=== PATIENT | male | born 1990 | race Caucasian/White ===

== ENCOUNTER 2022-04-26 16:55 | Observation (INO) ==
[2022-04-26 18:58] LABS: Basophils # (auto) 0.07 K/uL (0-0.2); Basophils % (auto) 0.7 %; Eosinophils # (auto) 0.09 K/uL (0-0.50); Eosinophils % (auto) 0.9 %; Hematocrit (blood only) 40.2 % (40.1-51.0); Hemoglobin 14.6 g/dl (14.0-18.0); Immature Granulocytes # (auto) 0.05 K/uL (0.00-0.02); Immature Granulocytes % (auto) 0.5 %; Lymphocytes # (auto) 2.93 K/uL (1.2-3.4); Lymphocytes % (auto) 28.1 %; Mean Corpuscular Hemoglobin 30.7 pg (25.0-34.0); Mean Corpuscular Hgb Conc 36.3 g/dL (32.0-36.0); Mean Corpuscular Volume 84.6 fL (80.0-100.0); Mean Platelet Volume 9.1 fL (9.4-12.4); Monocytes # (auto) 0.66 K/uL (0.24-0.82); Monocytes % (auto) 6.3 %; Neutrophils # (auto) 6.61 K/uL (1.4-6.5); Neutrophils % (auto) 63.5 %; Platelet Count 307 K/uL (130-400); RDW Coefficient of Variation 12.2 % (11.5-14.5); RDW Standard Deviation 37.1 fL (36.4-46.3); Red Blood Count 4.75 M/uL (4.63-6.08); White Blood Count 10.41 K/ul (4.8-10.8)
[2022-04-26 19:28] LABS: Albumin Globulin Ratio 1.3 (0.9-2); Albumin Level 4.6 gm/dl (3.4-5.0); BUN Creatinine Ratio 13.3 (10-20); Bilirubin,Total 0.5 mg/dl (0.2-1.0); Calcium 9.8 mg/dl (8.5-10.1); Est GFR (African American) 131.4 ml/min; Est GFR (Non-African American) 113.4 ml/min; Globulin 3.6 gm/dl (2.5-4.0); Total Protein 8.2 gm/dl (6.0-8.3)
--- NOTE | 2022-04-26 22:04 | Emergency Department Note ---
History of Present Illness General Chief complaint: Rectal Pain Stated complaint: ABSCESS, TOOK ANTI-BIOTICS NO BETTER Time Seen by Provider: 04/26/22 21:25 History of Present Illness Maximum Pain Intensity: 3 This 31 yo presents to the ER complaining of rectal discomfort Location: Rectal Quality: Discomfort Severity: Moderate Duration: Past week Timing: Started week ago Context: Patient was concerned and came in Modifying factors: better with Augmentin; worse with palpation Patient states he went to urgent care and was started on Augmentin. He has a history of recurrent perirectal abscesses. He is from [place]. He is here visiting. Patient states overall his rectal area is feeling better. Patient denies fevers, vomiting, abdominal pain, or any other medical complaints. Home Medications Medication Instructions Recorded Confirmed Type Multivitamin 1 tab PO DAILY ##0 10/21/14 History Allergies Allergy/AdvReac Type Severity Reaction Status Date / Time No Known Allergies Allergy Unverified 10/21/14 02:38 Past Med/Surg History Medical History HTN (hypertension) Surgical History No pertinent past surgical history Social History Smoking Status: Never smoker Feels Safe at Home: Yes Review of Systems A total of 10 systems reviewed and were otherwise negative Physical Exam Vital Signs Vital Signs - 24 hr 04/26/22 17:07 04/26/22 22:00 Temperature 36.9 C Temperature Source Temporal Artery Scan Pulse Rate 98 H Pulse Rate [Finger] 88 Respiratory Rate 18 16 Blood Pressure 150/92 H Blood Pressure [Left Arm] 143/96 H Blood Pressure Mean 111 Blood Pressure Mean [Left Arm] 111 Pulse Oximetry 98 97 Oxygen Delivery Method Room Air Room Air Sepsis Recent Fever Within 48 Hours No Sepsis New/Unexplained Change in Mental Status No Sepsis Action Taken by Nursing No Action Required VITALS: Vitals are noted on the nurse's note and reviewed by myself. Vital signs stable. GENERAL: Pleasant gentleman ambulating without difficulty, in no acute distress, nondiaphoretic, well-developed well-nourished. SKIN: The skin was without rashes, erythema, edema, or bruising. There is no tenting of the skin. Capillary reflex less than 2 seconds. HEAD: Normocephalic atraumatic. EARS: External auditory canals clear, EYES: Pupils equal round and reactive to light and accommodation. Conjunctivae without injection, sclerae without icterus. Extraocular movements intact. NOSE: Patent, turbinates without inflammation or discharge. MOUTH: Mucous membranes moist. Pharynx without erythema or exudate. Uvula midline. Airway patent. Tongue does not deviate. NECK: Supple without nuchal rigidity. No lymphadenopathy. No thyromegaly. Cervical spine is nontender. No JVD. HEART: Regular rate and rhythm LUNGS: Clear to auscultation bilaterally without wheezes, rales or rhonchi. No retractions or accessory muscle use. ABDOMEN: Positive bowel sounds x 4. Normal tympanic percussion. Soft, nontender, without masses or organomegaly. Rodriguez sign negative. No guarding or rebound tenderness. No CVA tenderness Rectal exam: No obvious fissure or tear, rectal area with minimal induration at 9:00, no active drainage. MUSCULOSKELETAL: No muscle atrophy, erythema, or edema noted. NEURO: Patient was alert and oriented to person place and time. Normal sensatio n to light and sharp touch. No focal neurological deficits. Course Administered Medications Piperacillin Sod/Tazobactam Sod (Zosyn) 4.5 gm in 120 mls @ 240 mls/hr IV NOW ONE Stop: 04/26/22 23:40 Last Admin: 04/26/22 23:18 Dose: 240 mls/hr Documented By: TJG Discontinued Medications Ioversol (Optiray 350 100ml) 78 ml IV ONCE ONE Stop: 04/26/22 22:08 Last Admin: 04/26/22 22:07 Dose: 78 ml Documented By: [facility] Medical Decision Making Medical Records Attestation: I reviewed the patient's medical records. Home Medications Current Medication List: was personally reviewed by me Laboratory Data Attestation: I reviewed the patient's lab results. Result diagrams: 04/26/22 18:09 04/26/22 18:09 Lab Results 04/26/22 04/26/22 Range/Units 18:09 18:09 WBC 10.41 (4.8-10.8) K/ul RBC 4.75 (4.63-6.08) M/uL Hgb 14.6 (14.0-18.0) g/dl Hct 40.2 (40.1-51.0) % MCV 84.6 (80.0-100.0) fL MCH 30.7 (25.0-34.0) pg MCHC 36.3 H (32.0-36.0) g/dL RDW Std Deviation 37.1 (36.4-46.3) fL RDW Coeff of Yosvany 12.2 (11.5-14.5) % Plt Count 307 (130-400) K/uL MPV 9.1 L (9.4-12.4) fL Immature Gran % (Auto) 0.5 % Neut % (Auto) 63.5 % Lymph % (Auto) 28.1 % [place] % (Auto) 6.3 % Eos % (Auto) 0.9 % Baso % (Auto) 0.7 % Neut # (Auto) 6.61 H (1.4-6.5) K/uL Lymph # (Auto) 2.93 (1.2-3.4) K/uL [place] # (Auto) 0.66 (0.24-0.82) K/uL Eos # (Auto) 0.09 (0-0.50) K/uL Baso # (Auto) 0.07 (0-0.2) K/uL Immature Gran # (Auto) 0.05 H (0.00-0.02) K/uL Sodium 140 (136-145) mmol/L Potassium 3.0 L (3.5-5.1) mmol/L Chloride 102 (98-107) mmol/L Carbon Dioxide 29 (21-32) mmol/L Anion Gap 9 (3-11) BUN 12 (6-23) mg/dl Creatinine 0.90 (0.6-1.4) mg/dl Est Cr Clr Drug Dosing 140.0 ml/min Est GFR ( Amer) 131.4 ml/min Est GFR (Non-Af Amer) 113.4 ml/min BUN/Creatinine Ratio 13.3 (10-20) Glucose 81 (70-99(Fasting)) mg/dl Calcium 9.8 (8.5-10.1) mg/dl Total Bilirubin 0.5 (0.2-1.0) mg/dl AST 32 (13-39) U/L ALT 46 (7-52) U/L Alkaline Phosphatase 71 (34-104) U/L Total Protein 8.2 (6.0-8.3) gm/dl Albumin 4.6 (3.4-5.0) gm/dl Globulin 3.6 (2.5-4.0) gm/dl Albumin/Globulin Ratio 1.3 (0.9-2) Lipase 21 (11-82) U/L Imaging Data Attestation: I personally reviewed and interpreted this imaging study as follows: MDM Narrative Prior records reviewed and summarized as above. Triage Nursing notes reviewed. Additional history obtained from nursing. The patient's history was concerning for swelling and redness of the skin. Differential diagnosis: Etiologies such as cellulitis, abscess, MRSA infection, DVT, necrotizing fasciitis, dermatitis, drug eruption, as well as others were entertained.. Physical examination: As above ER treatment provided: Augmentin On reassessment the patient felt better. Diagnostics interpreted by me: The labs revealed no worrisome leukocytosis Imaging studies: Preliminary Findings Only See Final Report For Complete Findings CT PELVIS: There is a smooth oval 3.1 x 1.7 x 3.3 cm right perirectal abscess located mainly inferior to the level of the anal sphincter. This does not extend up into the perirectal fat planes. The appendix is normal. Visible bowel loops are unremarkable. The urinary bladder is empty but otherwise unremarkable. Skeletal structures appear within normal limits. Radiologist: Yuval Nicole MD Consultation: I spoke with surgery, Dr. Clifton and he will admit the patient take the patient to the OR for I&D. This appears to be Perirectal abscess. Surgery will admit and take the patient to the OR. Patient was written for antibiotics.patient is agreeable to treatment plan of admission. By the evaluation outlined above emergent etiologies such as necrotizing fasciitis, DVT, as well as others were deemed relatively unlikely. The pt informed about the findings as listed above. All questions were answered and pleased with the treatment. The chart was completed utilizing [employer] voice recognition software. Grammatical errors, random word insertions, pronoun errors, and incomplete sentences are an occassional consequence of this system due to software limitations, ambient noise, and hardware issues. Any formal questions or concerns about the content, text, or information contained within the body of this dictation should be directly addressed to the physician assistant inventory manager for clarification. Impression & Plan Abscess, perirectal Discharge Plan Visit Data Chief Complaint: Rectal Pain Stated Complaint: ABSCESS, TOOK ANTI-BIOTICS NO BETTER ED Provider: Rakesh Arias ED Midlevel Provider: Gema Nelson Discharge Problem: Abscess, perirectal Patient Disposition: Being Evaluated by Surgeon Condition: Good Forms Stand Alone Forms: Linkpass Prescriptions Prescriptions: No Action Multivitamin tablet 1 tab PO DAILY Qty: 0 Referrals Referrals: PCP,NO [Primary Care Provider] -
[2022-04-26] MEDS ORDERED: OPTIRAY 350 100ml IV ONE (22:07)
[2022-04-26] MEDS ORDERED: PIPERACILLIN/TAZOBACTAM 4.5 GM/120 ML BAG IV ONE (23:11)
--- NOTE | 2022-04-26 23:31 | History & Physical Report ---
Date of Service April 26, 2022 Assessment & Plan (1) Abscess, perirectal: Plan 31-year-old gentleman with recurrent perirectal abscess in the [address] scan demonstrates 3.1 x 3.4 cm abscess. He has been on 7 days of Augmentin. I discussed with him the need for incision and drainage of the abscess. He will be admitted to the hospital and COVID tested. We will keep him n.p.o. He will most likely undergo I&D of the perirectal abscess in the operating room tomorrow by the general surgery team on-call. History of Present Illness Primary Care Provider: NO PCP 31-year-old gentleman with a history of recurrent perirectal abscess presents with a 10-day history of pain in his rectal area. He was seen at a convenient care location was placed on Augmentin. He states that he has been feeling better. He did have fevers but they have gone away. He is having normal bowel movements. He is able to eat. He is driving back to [place] in the next few days, and decided to get checked out with a CT scan. The CT scan demonstrates a 3.1 cm perirectal abscess. He continues to have some tenderness with palpation of the area. He denies any current fevers or chills. Allergies Allergy/AdvReac Type Severity Reaction Status Date / Time No Known Allergies Allergy Unverified 10/21/14 02:38 Home Medications Medication Instructions Recorded Confirmed Type Multivitamin 1 tab PO DAILY ##0 10/21/14 History Past Med/Surg History Medical History HTN (hypertension) Surgical History No pertinent past surgical history Social History Smoking Status: Never smoker Feels Safe at Home: Yes Review of Systems Review of Systems: All systems reviewed & are unremarkable except as noted in HPI & below Physical Exam Constitutional: WD/WN, vitals as above Eyes: PERRL, conjunctivae normal, anicteric sclerae Neck: trachea midline, no thyromegaly Respiratory: normal respiratory effort, lungs clear to auscultation Cardiovascular: RRR, no murmur, no edema Gastrointestinal (Abdomen): Inspection/Auscultation: abdomen normal to inspection Percussion/Palpation: abdomen soft; abdomen nontender Rectal: 9:00 location with slight erythema and tenderness to palpation; no induration or fluctuance Skin: no rashes, warm and dry Psychiatric: A+Ox3, euthymic affect Results & Data Results & Data ([facility]) Vital Signs (Past 12 Hours) Vital Signs Temp Pulse Pulse Resp BP BP Pulse Ox 04/26/22 23:27 101 H 16 174/100 H 100 04/26/22 22:00 88 16 143/96 H 97 04/26/22 17:07 36.9 C 98 H 18 150/92 H 98 O2 Del Method 04/26/22 23:27 Room Air 04/26/22 22:00 Room Air 04/26/22 17:07 Room Air Laboratory Results 04/26/22 04/26/22 04/26/22 Range/Units 22:45 18:09 18:09 WBC 10.41 (4.8-10.8) K/ul RBC 4.75 (4.63-6.08) M/uL Hgb 14.6 (14.0-18.0) g/dl Hct 40.2 (40.1-51.0) % MCV 84.6 (80.0-100.0) fL MCH 30.7 (25.0-34.0) pg MCHC 36.3 H (32.0-36.0) g/dL RDW Std Deviation 37.1 (36.4-46.3) fL RDW Coeff of Yosvany 12.2 (11.5-14.5) % Plt Count 307 (130-400) K/uL MPV 9.1 L (9.4-12.4) fL Immature Gran % (Auto) 0.5 % Neut % (Auto) 63.5 % Lymph % (Auto) 28.1 % [place] % (Auto) 6.3 % Eos % (Auto) 0.9 % Baso % (Auto) 0.7 % Neut # (Auto) 6.61 H (1.4-6.5) K/uL Lymph # (Auto) 2.93 (1.2-3.4) K/uL [place] # (Auto) 0.66 (0.24-0.82) K/uL Eos # (Auto) 0.09 (0-0.50) K/uL Baso # (Auto) 0.07 (0-0.2) K/uL Immature Gran # (Auto) 0.05 H (0.00-0.02) K/uL Sodium 140 (136-145) mmol/L Potassium 3.0 L (3.5-5.1) mmol/L Chloride 102 (98-107) mmol/L Carbon Dioxide 29 (21-32) mmol/L Anion Gap 9 (3-11) BUN 12 (6-23) mg/dl Creatinine 0.90 (0.6-1.4) mg/dl Est Cr Clr Drug Dosing 140.0 ml/min Est GFR ( Amer) 131.4 ml/min Est GFR (Non-Af Amer) 113.4 ml/min BUN/Creatinine Ratio 13.3 (10-20) Glucose 81 (70-99(Fasting)) mg/dl Calcium 9.8 (8.5-10.1) mg/dl Total Bilirubin 0.5 (0.2-1.0) mg/dl AST 32 (13-39) U/L ALT 46 (7-52) U/L Alkaline Phosphatase 71 (34-104) U/L Total Protein 8.2 (6.0-8.3) gm/dl Albumin 4.6 (3.4-5.0) gm/dl Globulin 3.6 (2.5-4.0) gm/dl Albumin/Globulin Ratio 1.3 (0.9-2) Lipase 21 (11-82) U/L SARS-CoV-2, RNA, NAAT Pending Code Status & VTE Plan VTE Prophylaxis Plan VTE Prophylaxis will be ordered: Yes
[2022-04-27] MEDS ORDERED: LACTATED RINGER'S 1,000 ML IV SCH (01:47)
[2022-04-27] MEDS ORDERED: ONDANSETRON INJ 2 MG/ML 2 ML VIAL IV PRN ×2 (01:47→12:36)
[2022-04-27] MEDS ORDERED: MoRPHine SULFATE 2 MG/ML CARP IV PRN (01:47)
[2022-04-27] MEDS: PIPERACILLIN/TAZOBACTAM 4.5 GM in DEXTROSE 5% 100 ML IV ONE ×2 (02:17→03:42)
[2022-04-27] MEDS: PIPERACILLIN/TAZOBACTAM 4.5 GM in DEXTROSE 5% 100 ML IV SCH ×2 (03:50→14:28)
[2022-04-27] MEDS ORDERED: ENOXAPARIN INJ 40 MG/0.4 ML SYR SQ SCH (08:00)
[2022-04-27] MEDS ORDERED: PIPERACILLIN/TAZOBACTAM 4.5 GM in DEXTROSE 5% 100 ML IV SCH (08:00)
--- NOTE | 2022-04-27 08:44 | Anesthesiology Consultation ---
Date of Service April 27, 2022 Assessment & Plan (1) Encounter for pre-operative examination: Chart Review Chart Review: Acceptable Risk for Surgery and Patient NOT seen in Pre Admission Testing Consults Requested none History Surgery Operation Date: 04/27/22 10:10 Proposed Procedures p Incision and Drainage Perirectal Abscess - Johny Brooks MD Height/Weight Height: 5 ft 6 in Weight: 110.5 kg Allergies Allergy/AdvReac Type Severity Reaction Status Date / Time No Known Allergies Allergy Unverified 10/21/14 02:38 Medications Home Medications Medication Instructions Recorded Confirmed Last Taken amlodipine 5 mg tablet 5 mg PO DAILY 04/26/22 04/26/22 Unknown amoxicillin 875 mg-potassium 1 tab PO BID 04/26/22 04/26/22 Unknown clavulanate 125 mg tablet azelastine 137 mcg (0.1 %) nasal 1 spray intranasal BID 04/26/22 04/26/22 Unknown spray aerosol hydrochlorothiazide 25 mg tablet 25 mg PO DAILY 04/26/22 04/26/22 Unknown sertraline 50 mg tablet 50 mg PO DAILY 04/26/22 04/26/22 Unknown Active Medications Generic Name Dose Route Start Last Admin Trade Name Freq PRN Reason Stop Dose Admin Enoxaparin Sodium 40 mg 04/27/22 08:00 04/27/22 07:32 Enoxaparin Inj 40 Mg/0.4 Ml Syr SQ 05/27/22 07:59 Not Given Q24H HUMERA Lactated Ringer's 1,000 mls @ 75 mls/hr 04/27/22 01:47 04/27/22 02:17 Lr IV 05/27/22 01:46 75 mls/hr .[id number] HUMERA Administration Piperacillin Sod/Tazobactam 120 mls @ 30 mls/hr 04/27/22 04:00 04/27/22 07:58 Sod 4.5 gm/ Dextrose IV 05/04/22 03:59 Infused Q8H HUMERA Infusion Protocol Past Medical History Medical History HTN (hypertension) Past Surgical History Surgical History No pertinent past surgical history Social History Smoking Status: Never smoker Do You Dip or Chew Tobacco: No Hx Alcohol Use: Yes alcohol intake frequency: a few times a month Hx Substance Use: No Physical Exam Vital Signs Last Vital Signs Temp 98.6 F 04/27/22 07:08 Pulse 84 04/27/22 07:08 Resp 17 04/27/22 07:08 BP 113/74 04/27/22 07:08 Pulse Ox 98 04/27/22 07:08 O2 Del Method 04/27/22 07:45 Testing Laboratory Results 04/26/22 18:09 04/26/22 18:09
--- NOTE | 2022-04-27 09:03 | CT Scan Report ---
CT pelvis w/IV con only HISTORY: 31 years-old Male rectal pain, ? ascess acute rectal pain with possible perirectal abscess. COMPARISON: None TECHNIQUE: Multiple axial CT images of the pelvis were obtained following the intravenous initiation of 78 mL Optiray 350. A dose lowering technique was used consistent with the principals of GUS. FINDINGS: Peripherally enhancing 3.6 x 1.9 x 3.6 cm fluid collection is noted within the inferomedial right glu teal fold with superior medial portion of the collection abutting the anus. No perianal fistula ident ified. Mild adjacent inflammatory stranding. No acute intrapelvic abnormality identified. Normal appe ndix. No lymphadenopathy identified. Decompressed urinary bladder. Unremarkable prostate. Musculature is within normal limits. No acute fracture. IMPRESSION: 3.6 cm perianal abscess. No perianal fistula or supralevator extension. ACT 112: Negative or not required by law. The above report was generated using voice recognition software. It may contain grammatical, syntax o r spelling errors. Electronically signed by: Scott Gallagher M.D. 04/27/2022 9:01 AM
--- NOTE | 2022-04-27 10:56 | History & Physical Bridge Note ---
Date of Service April 27, 2022 History & Physical Bridge Note I have examined the patient, reviewed the History & Physical and in the interval since the performance of the History & Physical I have noted the following changes of clinical significance: no changes noted, I reviewed pt's H/P labs and CT scan with pt, I recommend to do I/D perirectal abscess, D/W benefits, risks and alternatives of the surgery, the risks- infection, bleeding, fistula, recurrence, sepsis, pt understood, he signed informed consent, I answered all questions,
[2022-04-27] MEDS ORDERED: ceFAZolin 2000MG 2,000 MG/15 ML SYR IV SCH (10:57)
[2022-04-27] MEDS ORDERED: ceFAZolin 2000MG 2,000 MG/15 ML SYR IV ONE (10:57)
[2022-04-27] MEDS ORDERED: GELATIN SPONGE SZ 100 ONE (12:16)
[2022-04-27] MEDS ORDERED: BUPIVACAINE 0.5 % 5 MG/1 ML MPF 30ML VIAL ONE (12:16)
[2022-04-27] MEDS ORDERED: LIDOCAINE 1% LOCAL 20 ML VIAL ONE (12:16)
[2022-04-27] MEDS ORDERED: BACITRACIN OINT 15 GM TUBE ONE (12:17)
[2022-04-27] MEDS ORDERED: ATROPINE SULFATE 0.1 MG/ML 10ML SYR IV PRN (12:36)
[2022-04-27] MEDS ORDERED: NALOXONE HCL 0.4 MG/1 ML VIAL/CARP IV PRN (12:36)
[2022-04-27] MEDS ORDERED: fentaNYL citrate 100 MCG/2 ML VIAL IV PRN (12:36)
[2022-04-27] MEDS ORDERED: ePHEDrine sulfate 50 MG/ML AMP IV PRN (12:36)
[2022-04-27] MEDS ORDERED: LABETALOL HCL IV 5 MG/ML 20ML IV PRN (12:36)
[2022-04-27] MEDS ORDERED: PROMETHAZINE HCL 12.5 MG in SODIUM CHLORIDE 0.9% 50 ML IV PRN (12:36)
[2022-04-27] MEDS ORDERED: MIDAZOLAM HCL 1 MG/ML 2ML VIAL ONE (12:38)
[2022-04-27] MEDS ORDERED: ONDANSETRON INJ 2 MG/ML 2 ML VIAL ONE (12:38)
[2022-04-27] MEDS ORDERED: PROPOFOL IV EMULSION 10 MG/ML 20 ML VIAL IV ONE (12:38)
[2022-04-27] MEDS ORDERED: DEXAMETHASONE SOD INJ 4 MG/ML VIAL ONE (12:38)
[2022-04-27] MEDS ORDERED: LIDOCAINE 2% MPF LOCAL 5 ML VIAL INFIL ONE (12:38)
[2022-04-27] MEDS ORDERED: fentaNYL citrate 100 MCG/2 ML VIAL ONE (12:38)
--- NOTE | 2022-04-27 13:38 | Post Operative Brief Note ---
Immediate Post Op Note v1 Date of Surgery April 27, 2022 Pre & Post Diagnosis Operation Date: 04/27/22 10:10 pre-op diagnosis- perirectal abscess post-op diagnosis- perirectal abscess I identified the patient and participated in the time-out.: Yes Procedure Operation Date: 04/27/22 10:10 incision and drainage perirectal abscess with nathaniel tube drainage Surgeon Johny Brooks MD Operational Communication Chief surgical instrument technician Estimated Blood Loss 10 Findings Consistent with Post-Op Diagnosis large perirectal abscess, wound culture sent Fluids 800ml Drains [place] Drain Anesthesia Type MAC Complications none Disposition Accompanied Patient To Recovery: Yes
--- NOTE | 2022-04-27 14:34 | Anesthesiology Progress Note ---
Date of Service April 27, 2022 Anesthesia Post Procedure Vital Signs Vital Signs: Temp Pulse Pulse Pulse Resp BP BP 04/27/22 14:05 37.1 C 83 15 04/27/22 13:55 83 15 04/27/22 13:46 37.0 C 82 18 04/27/22 12:21 37 C 100 H 18 154/95 H 04/27/22 07:45 04/27/22 07:08 37 C 84 17 113/74 04/27/22 01:24 36.9 C 100 H 145/101 H 04/27/22 00:52 87 16 147/89 H 04/26/22 23:27 101 H 16 174/100 H 04/26/22 22:00 88 16 143/96 H 04/26/22 17:07 36.9 C 98 H 18 150/92 H BP Pulse Ox O2 Del Method 04/27/22 14:05 119/75 94 Room Air 04/27/22 13:55 124/78 92 Room Air 04/27/22 13:46 117/71 95 Room Air 04/27/22 12:21 100 Room Air 04/27/22 07:45 Room Air 04/27/22 07:08 98 Room Air 04/27/22 01:24 97 Room Air 04/27/22 00:52 100 Room Air 04/26/22 23:27 100 Room Air 04/26/22 22:00 97 Room Air 04/26/22 17:07 98 Room Air Transfer of Care Handoff Completed per policy Notes Mental Status: alert / awake / arousable Patient Amnestic to Procedure: Yes Nausea / Vomiting: adequately controlled Pain: adequately controlled Airway Patency, RR, SpO2: stable & adequate BP & HR: stable & adequate Hydration State: stable & adequate Neuraxial Anesthesia: was administered and sensory block is resolving Anesthetic Complications: no major complications apparent
[2022-04-27] MEDS ORDERED: AMOXICILLIN/CLAVULANATE 875 MG TAB PO SCH (17:00)
[2022-04-27] MEDS ORDERED: AZELASTINE HCL 0.1% NASAL 200 SPRAYS/27,400 MCG BTL NAE SCH (21:00)
--- NOTE | 2022-04-28 08:03 | Operative Report (OR) ---
DATE OF PROCEDURE: April 27, 2022 PREOPERATIVE DIAGNOSIS: Perirectal abscess. POSTOPERATIVE DIAGNOSIS: Perirectal abscess. OPERATION: Incision and drainage of perirectal abscess. SURGEON: Johny Brooks MD. ANESTHESIA: Spinal plus local. COMPLICATIONS: None. ESTIMATED BLOOD LOSS: About 10 mL. FINDINGS: Large perirectal abscess, size about 3 x 4 cm. So, wound culture sent. INDICATIONS FOR THE PROCEDURE: This is a 31-year-old gentleman, who presented with 10 days history of perirectal pain. The patient had a CT scan diagnosis of perirectal abscess. I recommended to do incision and drainage of perirectal abscess. I did talk to the patient about the benefits, risks, and alternate procedure. I indicated the risks may include, but not limited to, such as bleeding, infection, recurrence, fistula, may need more procedure and scar, rectal pain. The patient understands. He signed informed consent and I answered all questions. DETAILS OF PROCEDURE: After we identified the patient and verified the procedure, we brought the patient to the OR and put the patient in the supine position on the OR table. The patient received a spinal block by the anesthesiology and then we put SCDs on bilateral legs to prevent DVT. Also, the patient received 2 grams of Ancef IV for prophylactic antibiotic and also the patient received sedation with anesthesiology. Then, we put the patient in lithotomy position. The patient's rectal area was prepped and draped in routine sterile fashion. After timeout, I injected the local anesthesia by using 1% lidocaine mixed with 0.5% Marcaine around the perirectal area at 9 o'clock. Then, I made about a 2 cm incision at the 9 o'clock and there was some pus came out, we did send the wound culture. Once cleared all the pus, the abscess cavity size was about 3 x 4 cm. Once cleared all the pus, we put about 4 cm length [place] tube drainage, the diameter about 0.25 inch. We sutured it by using 3-0 nylon to fix the drainage tube on the skin and hemostasis was obtained. Then, we put the dressing on. the abscess deep to the subcutaneous layer and the patient tolerated the procedure well. All instrument, needles, and sponge counts were correct x2 at the end of the case. The patient was transferred to recovery room in stable condition. After the procedure, I did talk to the patient about the OR finding and the procedure we did. Also, I gave the patient postoperative care instruction. The patient wanted to go home today and I recommended to stay in the hospital for at least for another 4 hours and then discharge the patient home if the patient meets the discharge criteria. The patient understands. I will follow up the patient in one week in my office to remove the drainage tube. Job ID: [id number] MTDD
[2022-04-28] MEDS ORDERED: amLODIPine BESYLATE 5 MG TAB PO SCH (09:00)
[2022-04-28] MEDS ORDERED: SERTRALINE HCL 50 MG TABLET PO SCH (09:00)
[2022-04-28] MEDS ORDERED: hydroCHLOROthiazide 25 MG TAB PO SCH (09:00)
--- NOTE | 2022-05-04 19:58 | Discharge Summary (DS) ---
DATE OF ADMISSION: 04/26/2022 DATE OF DISCHARGE: 04/27/2022 ADMISSION DIAGNOSIS: Perirectal abscess. DISCHARGE DIAGNOSIS: Perirectal abscess. OPERATION: Incision and drainage of perirectal abscess. SURGEON: Johny Brooks MD. DETAILS OF DISCHARGE SUMMARY: This is a 31-year-old gentleman who was admitted to the hospital for p erirectal abscess. After I reviewed the patient's history and physical exam, labs and CT scan with t he patient, I decided to recommend the patient to do incision and drainage of perirectal abscess. We brought the patient to the OR, we did incision and drainage of perirectal abscess on 04/27/2022. Duri ng the procedure, we found the patient had a large perirectal abscess with pus coming out once we mad e our incision. Wound cultures were sent and we put 1 Kathryn drainage in the abscess cavity. Then, we put the dressing on. The patient tolerated the procedure well. After the procedure, the patient was transferred to recovery room in stable condition. PHYSICAL EXAMINATION: VITAL SIGNS: Temperature is 37.1, respiratory rate 17, heart rate 88, blood pressure 151/80, O2 satu ration 98% on room air. GENERAL: The patient is alert, awake, oriented x3. HEENT: Within normal limitation. NEUROLOGIC: Intact. NECK: No JVD. CHEST: Bilateral lung sounds clear. HEART: Normal S1 and S2. No murmur. ABDOMEN: Soft, no tenderness, nondistended. Bowel sounds positive. EXTREMITIES: No edema. RECTAL: The dressing on the perirectal area was intact, no active bleeding. The patient wanted to go home after the procedure, the patient feels better and I recommended to stay in the hospital overnight but the patient wanted to go home. I gave the patient postop care instruct ions. The patient understands and we will follow up the patient in one week to remove the drainage t ube, and also I instructed the patient that the patient should contact my office or contact me if the patient had any question about the wound. The patient understands. Again, the patient wanted to go home and did not want to stay overnight over at the hospital. Job ID: [id number]
== END 2022-04-27 18:40 | disposition home or self-care (01) ==
LOC: 3W 16:55 → ED 16:55 → 3W 04-27 00:52